=== PATIENT | female | born 1975 | race Caucasian/White ===

== ENCOUNTER 2016-09-08 10:57 | Emergency (ER) | payer OTHER | END 2016-09-08 12:14 | disposition home or self-care (01) | LOC: ER 10:57 | DX: S46.811A Strain of other muscles, fascia and tendons at shoulder and upper arm level, right arm, initial encounter (principal); Z79.899 Other long term (current) drug therapy; Z88.1 Allergy status to other antibiotic agents; Z90.49 Acquired absence of other specified parts of digestive tract; Z98.51 Tubal ligation status; X58.XXXA Exposure to other specified factors, initial encounter | CPT/HCPCS: 96372; J1885 ==